=== PATIENT | female | born 1995 | race Hispanic/Latino ===

== ENCOUNTER 2017-05-08 11:28 | Emergency (ER) | payer MEDICAID ==
[~2017-05-08 11:28] MED LIST: PNV1TABL17 PO
[2017-05-08 11:48] LABS: APPEARANCE,URINE Cloudy (CLEAR); BILIRUBIN,URINE Negative (NEGATIVE); COLOR,URINE Dark Yellow (YELLOW); GLUCOSE, URINE (UA) Negative (NEGATIVE); KETONES,URINE Trace mg/dL (NEGATIVE); LEUKOCYTE ESTERASE ,URINE Trace (NEGATIVE); NITRATE,URINE Negative (NEGATIVE); OCCULT BLOOD,URINE Negative (NEGATIVE); PROTEIN,URINE Trace (NEGATIVE)
[2017-05-08 12:06] LABS: BACTERIA,URINE Moderate /HPF (None Seen); MUCUS,URINE Many LPF (None Seen); RBC,URINE 0-1 /HPF (0-1); SQUAMOUS EPITHELIAL CELL,UR Moderate /LPF (0-2)
[2017-05-08] MEDS ORDERED: LIDOCAINE HCL-MPF 1% 2ML VIAL ONE (12:12)
[2017-05-08] MEDS ORDERED: CEFTRIAXONE SODIUM 500 MG VIAL ONE (12:12)
[2017-05-08] MEDS ORDERED: AZITHROMYCIN 250 MG TABLET PO ONE (12:12)
== END 2017-05-08 12:47 | disposition home or self-care (01) ==
LOC: EDH 11:28
DX: N76.0 Acute vaginitis (principal); Z98.890 Other specified postprocedural states; Z72.0 Tobacco use
CPT/HCPCS: 81001; 87486; 87797; 96372; 99284; J0696; J3490

== ENCOUNTER 2018-04-21 19:59 | Emergency (ER) | payer MEDICAID ==
[2018-04-21] MEDS ORDERED: CLINDAMYCIN HCL 150 MG CAP ONE (20:25)
== END 2018-04-21 20:30 | disposition home or self-care (01) ==
LOC: EDH 19:59
DX: L03.113 Cellulitis of right upper limb (principal); Z90.49 Acquired absence of other specified parts of digestive tract; Z98.890 Other specified postprocedural states

== ENCOUNTER 2018-07-27 21:38 | Emergency (ER) | payer MEDICAID, OTHER ==
[2018-07-27 22:12] LABS: BASOPHILS % (AUTO) 0.5 % (0.0-5.0); EOSINOPHILS % (AUTO) 0.7 % (0.0-8.0); HEMATOCRIT 41.6 % (36-48); LYMPHOCYTES % (AUTO) 14.6 % (21.0-51.0); MEAN CORPUSCULAR HEMOGLOBIN 28.4 pg (27.0-33.0); MEAN CORPUSCULAR HGB CONC 33.5 g/dL (32.0-36.0); MEAN CORPUSCULAR VOLUME 84.9 fL (79-99); MONOCYTES % (AUTO) 9.6 % (3.0-13.0); NEUTROPHILS % (AUTO) 74.6 % (40.0-77.0); PLATELET COUNT (AUTO) 232 K/uL (130-400); RED CELL DISTRIBUTION WIDTH 14.7 % (11.0-15.5); WHITE BLOOD COUNT (AUTO) 14.6 K/uL (4.8-10.8)
[2018-07-27] MEDS ORDERED: ONDANSETRON HCL 4 MG/2 ML VIAL ONE (22:12)
[2018-07-27] MEDS ORDERED: SODIUM CHLORIDE 0.9% 1000ML 1,000 ML IV ONE (22:12)
[2018-07-27 22:28] LABS: INR 1.05 (0.85-1.15); PARTIAL THROMBOPLASTIN TIME 28.3 SEC (26.3-35.5)
[2018-07-27 22:32] LABS: CARBON DIOXIDE 27 mmol/L (21-32); CHLORIDE 102 mmol/L (101-111); CREATININE 0.8 mg/dL (0.5-1.5); GLOMERULAR FILTR. RATE CALC 93 mL/min (>60); GLUCOSE,RANDOM 101 mg/dL (70-105); POTASSIUM 3.9 mmol/L (3.5-5.1); SODIUM SERUM 139 mmol/L (136-145); UREA NITROGEN, BLOOD 14 mg/dL (7-18)
[2018-07-27 22:53] LABS: ALANINE AMINOTRANSFERASE 26 U/L (12-78); ALBUMIN 4.2 g/dL (3.5-5.0); ALCOHOL, BLOOD < 3 mg/dL (0-10); AMYLASE 54 U/L (25-115); ASPARTATE AMINOTRANSFERASE 17 U/L (10-37); BILIRUBIN,TOTAL 0.3 mg/dL (0.2-1.0); CREATINE KINASE, TOTAL 155 U/L (21-232); HCG,QUANTITATIVE 0 mIU/mL (0-5); LIPASE 69 U/L (114-286); TOTAL PROTEIN, SERUM 8.7 g/dL (6.0-8.3)
[2018-07-27 23:02] LABS: APPEARANCE,URINE Clear (CLEAR); BILIRUBIN,URINE Negative (NEGATIVE); COLOR,URINE Yellow (YELLOW); GLUCOSE, URINE (UA) Negative (NEGATIVE); KETONES,URINE Negative (NEGATIVE); LEUKOCYTE ESTERASE ,URINE Negative (NEGATIVE); NITRATE,URINE Negative (NEGATIVE); OCCULT BLOOD,URINE Negative (NEGATIVE); PROTEIN,URINE POS 1+ mg/dL (NEGATIVE)
[2018-07-27 23:03] LABS: HCG,QUAL RESULT NEGATIVE (NEGATIVE)
[2018-07-27 23:10] LABS: AMPHET/METH SCREEN,URINE POSITIVE (NEGATIVE); BARBITURATE SCREEN, URINE NEGATIVE (NEGATIVE); BENZODIAZEPINES SCREEN,URINE POSITIVE (NEGATIVE); CANNABINOID SCREEN,URINE NEGATIVE (NEGATIVE); COCAINE SCREEN,URINE POSITIVE (NEGATIVE); OPIATE SCREEN,URINE NEGATIVE (NEGATIVE); PHENCYCLIDINE SCREEN,URINE NEGATIVE (NEGATIVE)
[2018-07-27] MEDS ORDERED: PHENYTOIN SODIUM 50 MG/ML 2ML VIAL IV ONE (23:15)
[2018-07-27] MEDS ORDERED: SODIUM CHLORIDE 0.9% 100 ML IV ONE (23:20)
[2018-07-27] MEDS ORDERED: FOSPHENYTOIN SODIUM 100 MG/2 ML VIAL IV ONE (23:20)
== END 2018-07-28 01:32 ==
LOC: EDH 21:38
DX: S09.8XXA Other specified injuries of head, initial encounter (principal); G40.909 Epilepsy, unspecified, not intractable, without status epilepticus; F14.10 Cocaine abuse, uncomplicated; F15.10 Other stimulant abuse, uncomplicated; F13.10 Sedative, hypnotic or anxiolytic abuse, uncomplicated; Z90.49 Acquired absence of other specified parts of digestive tract; Z72.0 Tobacco use; W18.39XA Other fall on same level, initial encounter; Y93.89 Activity, other specified; Y92.89 Other specified places as the place of occurrence of the external cause; Y99.8 Other external cause status
CPT/HCPCS: 36415; 70450; 80053; 80177; 80305; 81003; 81025; 82150; 82550; 83690; 84484; 84702; 85025; 85610; 85730; 93005; 96374; 96375; 99285; G0480; J1165; J2405; J7030; Q2009

== ENCOUNTER 2018-07-31 11:16 | Emergency (ER) | payer OTHER ==
[2018-07-31 12:04] LABS: APPEARANCE,URINE Clear (CLEAR); BILIRUBIN,URINE Negative (NEGATIVE); COLOR,URINE Yellow (YELLOW); GLUCOSE, URINE (UA) Negative (NEGATIVE); KETONES,URINE Negative (NEGATIVE); LEUKOCYTE ESTERASE ,URINE Negative (NEGATIVE); NITRATE,URINE Negative (NEGATIVE); OCCULT BLOOD,URINE Negative (NEGATIVE); PROTEIN,URINE Negative (NEGATIVE)
[2018-07-31 12:08] LABS: HCG,QUAL RESULT NEGATIVE (NEGATIVE)
[2018-07-31 12:14] LABS: AMPHET/METH SCREEN,URINE POSITIVE (NEGATIVE); BARBITURATE SCREEN, URINE NEGATIVE (NEGATIVE); BENZODIAZEPINES SCREEN,URINE POSITIVE (NEGATIVE); CANNABINOID SCREEN,URINE NEGATIVE (NEGATIVE); COCAINE SCREEN,URINE POSITIVE (NEGATIVE); OPIATE SCREEN,URINE NEGATIVE (NEGATIVE); PHENCYCLIDINE SCREEN,URINE NEGATIVE (NEGATIVE)
== END 2018-07-31 12:32 | disposition home or self-care (01) ==
LOC: EDH 11:16
DX: B00.1 Herpesviral vesicular dermatitis (principal); Z90.49 Acquired absence of other specified parts of digestive tract
CPT/HCPCS: 80305; 81003; 81025

== ENCOUNTER 2018-08-02 20:08 | Emergency (ER) | payer OTHER ==
[2018-08-02] MEDS ORDERED: LEVETIRACETAM 500 MG TABLET PO ONE (20:44)
== END 2018-08-02 21:21 | disposition home or self-care (01) ==
LOC: EDH 20:08
DX: G40.909 Epilepsy, unspecified, not intractable, without status epilepticus (principal); Z90.49 Acquired absence of other specified parts of digestive tract; Z98.890 Other specified postprocedural states; Z72.0 Tobacco use

== ENCOUNTER 2018-08-09 23:59 | Emergency (ER) | payer OTHER ==
[2018-08-10] MEDS ORDERED: KETOROLAC TROMETHAMINE 30MG/ML ONE (00:36)
[2018-08-10] MEDS ORDERED: CLINDAMYCIN 300 MG/D5W 50 ML 50 ML IV ONE (00:36)
[2018-08-10] MEDS ORDERED: DiphenhydrAMINE HCL 50 MG/ML VIAL ONE (00:36)
[2018-08-10] MEDS ORDERED: LIDOCAINE HCL 2% VISCOUS 15 ML UDCUP ONE (00:37)
[2018-08-10] MEDS ORDERED: SODIUM CHLORIDE 0.9% 1000ML 1,000 ML IV ONE (00:37)
[2018-08-10] MEDS ORDERED: CLINDAMYCIN HCL 150 MG CAP ONE (01:28)
== END 2018-08-10 02:11 ==
LOC: EDH 23:59
DX: K02.9 Dental caries, unspecified (principal); Z90.49 Acquired absence of other specified parts of digestive tract; Z72.0 Tobacco use
CPT/HCPCS: 96374; 96375; 99284; J1200; J1885; J3490; J7030

== ENCOUNTER 2018-08-23 22:15 | Observation (INO) | payer OTHER ==
[~2018-08-23] VITALS: Ht 152.4 cm; Wt 61.8 kg
[2018-08-23 23:09] LABS: BASOPHILS % (AUTO) 0.6 % (0.0-5.0); EOSINOPHILS % (AUTO) 3.4 % (0.0-8.0); HEMATOCRIT 38.4 % (36-48); MEAN CORPUSCULAR HEMOGLOBIN 28.4 pg (27.0-33.0); MEAN CORPUSCULAR HGB CONC 32.6 g/dL (32.0-36.0); MEAN CORPUSCULAR VOLUME 87.1 fL (79-99); MONOCYTES % (AUTO) 11.2 % (3.0-13.0); NEUTROPHILS % (AUTO) 52.8 % (40.0-77.0); PLATELET COUNT (AUTO) 254 K/uL (130-400); RED BLOOD CELL COUNT(AUTO) 4.41 MIL/uL (4.00-5.50); RED CELL DISTRIBUTION WIDTH 16.1 % (11.0-15.5); WHITE BLOOD COUNT (AUTO) 10.2 K/uL (4.8-10.8)
[2018-08-23 23:13] LABS: CREATININE 0.6 mg/dL (0.5-1.5); POTASSIUM 4.8 mmol/L (3.5-5.1)
[2018-08-23] MEDS ORDERED: FOSPHENYTOIN SODIUM 500 MG/10ML VIAL IJ ONE (23:14)
[2018-08-23] MEDS ORDERED: SODIUM CHLORIDE 0.9% 500ML 500 ML IV ONE (23:15)
[2018-08-23 23:18] LABS: ALBUMIN 3.8 g/dL (3.5-5.0); BILIRUBIN,TOTAL 0.1 mg/dL (0.2-1.0); TOTAL PROTEIN, SERUM 7.6 g/dL (6.0-8.3)
[2018-08-23 23:35] LABS: APPEARANCE,URINE Clear (CLEAR); BILIRUBIN,URINE Negative (NEGATIVE); COLOR,URINE Yellow (YELLOW); GLUCOSE, URINE (UA) Negative (NEGATIVE); KETONES,URINE Negative (NEGATIVE); LEUKOCYTE ESTERASE ,URINE Small (NEGATIVE); NITRATE,URINE Negative (NEGATIVE); OCCULT BLOOD,URINE Negative (NEGATIVE); PROTEIN,URINE Negative (NEGATIVE); UROBILINOGEN,URINE 0.2 mg/dL (0.2-1.0)
[2018-08-23 23:39] LABS: HCG,QUAL RESULT NEGATIVE (NEGATIVE)
[2018-08-23 23:43] LABS: AMPHET/METH SCREEN,URINE NEGATIVE (NEGATIVE); BARBITURATE SCREEN, URINE NEGATIVE (NEGATIVE); BENZODIAZEPINES SCREEN,URINE NEGATIVE (NEGATIVE); CANNABINOID SCREEN,URINE NEGATIVE (NEGATIVE); COCAINE SCREEN,URINE NEGATIVE (NEGATIVE); OPIATE SCREEN,URINE NEGATIVE (NEGATIVE); PHENCYCLIDINE SCREEN,URINE NEGATIVE (NEGATIVE)
[2018-08-23 23:55] LABS: BACTERIA,URINE None Seen /HPF (None Seen); RBC,URINE None Seen /HPF (0-1); WBC,URINE 0-1 /HPF (0-1)
[2018-08-23 23:56] LABS: SQUAMOUS EPITHELIAL CELL,UR Many /HPF (0-2)
[2018-08-24] MEDS ORDERED: ACETAMINOPHEN EXTRA STRENGTH 500 MG TABLET ONE (03:24)
[2018-08-24 03:50] VITALS: BP 116/76
[2018-08-24] MEDS ORDERED: IBUP-2353 PO (04:04)
[2018-08-24] MEDS ORDERED: ESCI10TA54 PO (04:04)
[2018-08-24] MEDS ORDERED: LEVE500T19 PO (04:04)
[2018-08-24 07:30] VITALS: BP 107/69
[2018-08-24] MEDS ORDERED: IBUPROFEN 400 MG TABLET PO PRN (07:45)
[2018-08-24] MEDS: LEVETIRACETAM 250 MG TABLET PO SCH ×2 (08:50→22:52)
[2018-08-24 11:00] VITALS: BP 106/49
--- NOTE | 2018-08-24 11:02 | NUR ---
[facility] SW spoke to office at bedside. Pt will return to [facility] at discharge.
[2018-08-24 16:00] VITALS: BP 104/76
[2018-08-24] MEDS ORDERED: CITALOPRAM 20 MG TABLET PO SCH (17:00)
--- NOTE | 2018-08-24 17:36 | NUR ---
cm note met with patient and officer at bedside. per officer can call at time of dc for any needs nursing to speak to nurse Dario. [phone]. also can give rxs to officer at discharge, and the [facility] will make arrangements to have them picked up at [facility] in [place]. updated primary nurse on plan.
[2018-08-24 20:12] VITALS: BP 135/72
[2018-08-25 00:04] VITALS: BP 111/71
--- NOTE | 2018-08-25 00:45 | NUR ---
Re: c/o headache Pt c/o of headache, radiating to her back at this time claimed scale 8/10, pt noted calmly watching TV with the officer at the bedside, VS stable. Pt made aware she has Ibuprofen 400mg but refused stated she was given this meds earlier but it did not help at all. I made her aware I need to page Dr. Guzmán to ask other type of pain medication.
--- NOTE | 2018-08-25 01:10 | NUR ---
Re: Pain medication Dr. Guzmán page & called back updated with pt's c/o, provided with why pt is admitted since MD claimed he does not recall having this pt. I made him aware that probably this is a pt of Dr. Zacarias since [facility]. Order received & carried out.
[2018-08-25] MEDS ORDERED: ACETAMINOPHEN-CODEINE 300/30MG TAB ONE (01:15)
[2018-08-25] MEDS ORDERED: ACETAMINOPHEN-CODEINE 300/30MG TAB PO PRN (01:15)
--- NOTE | 2018-08-25 02:20 | NUR ---
Re: c/o abdominal discomfort, SOB Pt at this time c/o of sudden abdominal discomfort, claimed just like a gallbladder pain when stated "I don't have a gallbladder" claimed upper quadrant discomfort, not a pain. I explained since I just had given her the Tylenol with Codeine, I won't be able to give her anything at this time. Pt once again claimed it's not a pain I just don't know what it is. At this time I offered a warm compress. O2 sat 99%.
--- NOTE | 2018-08-25 02:40 | NUR ---
Re: C/O Chest Pain protection officer at the bedside came out & stated that the pt this time is complaining of chest pain with abdominal pain, crying & restless. [place] [address]; [place] 110, RR 21, O2 sat 97 room air. Pt cued to calm down, noted to start hyperventilating, explained what she is manifesting at this time won't help her discomfort, but insisted that I don't understand her, that she really is having a bad chest pain with pressure that radiated to her stomach. I then inform the pt I will proceed in doing 12 lead EKG to see if any issue in her rhythm, agreed. When all intervention was done, pt made aware everything was OK, pt continue to sob, claiming she does not understand why is this happening. Encourage pt to relax by watching some TV shows or try to sleep. Then this time stating that her bed might have some bugs as she start feeling itchy, again assurance given, all sheets change as pt stated she just took a shower earlier.
[2018-08-25 02:45] VITALS: BP 134/73
--- NOTE | 2018-08-25 03:10 | NUR ---
Re-assess Pt noted eating with some chips & laughing with the nursing home guard at the bedside, claimed she feels better now, again did know why she had the pain earlier. Encourage pt then to get some sleep at this time.
[2018-08-25 04:07] VITALS: BP 164/73
[2018-08-25 04:08] VITALS: BP 125/65
[2018-08-25 08:00] VITALS: BP 118/68
[2018-08-25] MEDS: LEVETIRACETAM 250 MG TABLET PO SCH (08:53)
--- NOTE | 2018-08-25 09:20 | NUR ---
Re: c/o of chest pain at 0245 Page & called back Dr. Guzmán updated of pt c/o chest pain around 0245, after given with Tylenol with Codeine, pt claimed head ache & back pain is gone but then at 0245 start c/o chest pain with abdominal pain, crying, start hyperventilating, inspite of assurance given everything VS, O2sat within normal, 12 lead EKG done & when made aware outcome NSR, after few minutes start to calm down. MD made aware airfield engineer officer had asked if he will be coming to see the pt today, stated will do.
[2018-08-25 11:49] VITALS: BP 100/60
--- NOTE | 2018-08-25 16:00 | NUR ---
PT D/C TO [facility] USING TEACH BACK TECHNIQUE RE; HOME MEDS, NEW MEDS, S/S TO WATCH FOR AND WHEN TO CALL MD OR 911. CALL 911 IF SEIZURES REOCCUR. MAKE SURE TO FOLLOW UP WITH YOUR PRIMARY DOCTOR IN 1 WEEK. MAKE SURE TO CONTINUE TAKING YOUR ANTISEIZURE MEDICATION IT WAS INCREASED IN STRENGTH TO PREVENT SEIZURES. MAKE SURE YOU START TAKING OMEPRAZOLE TO PREVENT UPSET STOMACH OR GASTRITIS FROM WORSENING. TAKE PILLS BEFORE MEALS. IV OUT INTACT NO BLEEDING, AAOX3, DENIES ANY DISTRESS AT THIS TIME. OFFICER AT BEDSIDE. REPORT GIVEN TO NURSE FROM [facility].
== END 2018-08-25 16:26 ==
LOC: EDH 22:15 → EEVIPCON 22:16 → EDHIP 22:16 → 3DH 08-24 02:54
PROVIDERS: ADMIT Internal Medicine; ATTEND Internal Medicine
DX: G40.909 Epilepsy, unspecified, not intractable, without status epilepticus (principal); G43.909 Migraine, unspecified, not intractable, without status migrainosus; K29.70 Gastritis, unspecified, without bleeding; F13.239 Sedative, hypnotic or anxiolytic dependence with withdrawal, unspecified; Z82.0 Family history of epilepsy and other diseases of the nervous system; Z79.899 Other long term (current) drug therapy
CPT/HCPCS: 36415; 70450; 71045; 80053; 80177; 80305; 81001; 81025; 82550; 85025; 93005; 99284; G0378 ×33; J7040; Q2009

== ENCOUNTER 2018-08-26 00:55 | Emergency (ER) | payer OTHER ==
[~2018-08-26 00:55] MED LIST changes: +ESCI10TA54 PO; +IBUP-2353 PO; -PNV1TABL17 PO
[2018-08-26 01:25] LABS: BASOPHILS % (AUTO) 0.5 % (0.0-5.0); EOSINOPHILS % (AUTO) 3.1 % (0.0-8.0); HEMATOCRIT 35.8 % (36-48); LYMPHOCYTES % (AUTO) 31.3 % (21.0-51.0); MEAN CORPUSCULAR HEMOGLOBIN 29.3 pg (27.0-33.0); MEAN CORPUSCULAR HGB CONC 33.8 g/dL (32.0-36.0); MEAN CORPUSCULAR VOLUME 86.8 fL (79-99); MONOCYTES % (AUTO) 9.5 % (3.0-13.0); NEUTROPHILS % (AUTO) 55.6 % (40.0-77.0); PLATELET COUNT (AUTO) 210 K/uL (130-400); RED BLOOD CELL COUNT(AUTO) 4.13 MIL/uL (4.00-5.50); RED CELL DISTRIBUTION WIDTH 15.6 % (11.0-15.5)
[2018-08-26 01:31] LABS: CREATININE 0.5 mg/dL (0.5-1.5); POTASSIUM 3.8 mmol/L (3.5-5.1)
[2018-08-26 02:33] LABS: BILIRUBIN,URINE Negative (NEGATIVE); COLOR,URINE Yellow (YELLOW); GLUCOSE, URINE (UA) Negative (NEGATIVE); KETONES,URINE Negative (NEGATIVE); LEUKOCYTE ESTERASE ,URINE Negative (NEGATIVE); NITRATE,URINE Negative (NEGATIVE); OCCULT BLOOD,URINE Negative (NEGATIVE); PROTEIN,URINE Negative (NEGATIVE); UROBILINOGEN,URINE 0.2 mg/dL (0.2-1.0)
[2018-08-26 02:35] LABS: HCG,QUAL RESULT NEGATIVE (NEGATIVE)
[2018-08-26 02:36] LABS: APPEARANCE,URINE CLEAR (CLEAR)
[2018-08-26 02:47] LABS: AMPHET/METH SCREEN,URINE NEGATIVE (NEGATIVE); BARBITURATE SCREEN, URINE NEGATIVE (NEGATIVE); BENZODIAZEPINES SCREEN,URINE NEGATIVE (NEGATIVE); CANNABINOID SCREEN,URINE NEGATIVE (NEGATIVE); COCAINE SCREEN,URINE NEGATIVE (NEGATIVE); OPIATE SCREEN,URINE POSITIVE (NEGATIVE); PHENCYCLIDINE SCREEN,URINE NEGATIVE (NEGATIVE)
== END 2018-08-26 03:43 ==
LOC: EDH 00:55
DX: G40.909 Epilepsy, unspecified, not intractable, without status epilepticus (principal); Z79.899 Other long term (current) drug therapy; Z87.891 Personal history of nicotine dependence
CPT/HCPCS: 36415; 80048; 80305; 81003; 81025; 85025

== ENCOUNTER 2018-08-31 00:17 | Emergency (ER) | payer OTHER ==
[2018-08-31 01:29] LABS: HCG,QUAL RESULT NEGATIVE (NEGATIVE)
[2018-08-31 01:30] LABS: BASOPHILS % (AUTO) 2.5 % (0.0-5.0); EOSINOPHILS % (AUTO) 3.6 % (0.0-8.0); HEMATOCRIT 37.6 % (36-48); LYMPHOCYTES % (AUTO) 30.9 % (21.0-51.0); MEAN CORPUSCULAR HEMOGLOBIN 28.7 pg (27.0-33.0); MEAN CORPUSCULAR HGB CONC 32.9 g/dL (32.0-36.0); MEAN CORPUSCULAR VOLUME 87.2 fL (79-99); MONOCYTES % (AUTO) 8.4 % (3.0-13.0); NEUTROPHILS % (AUTO) 54.6 % (40.0-77.0); PLATELET COUNT (AUTO) 252 K/uL (130-400); RED BLOOD CELL COUNT(AUTO) 4.31 MIL/uL (4.00-5.50); RED CELL DISTRIBUTION WIDTH 15.9 % (11.0-15.5); WHITE BLOOD COUNT (AUTO) 9.3 K/uL (4.8-10.8)
[2018-08-31 01:35] LABS: AMPHET/METH SCREEN,URINE NEGATIVE (NEGATIVE); BARBITURATE SCREEN, URINE NEGATIVE (NEGATIVE); BENZODIAZEPINES SCREEN,URINE NEGATIVE (NEGATIVE); CANNABINOID SCREEN,URINE NEGATIVE (NEGATIVE); COCAINE SCREEN,URINE NEGATIVE (NEGATIVE); OPIATE SCREEN,URINE NEGATIVE (NEGATIVE); PHENCYCLIDINE SCREEN,URINE NEGATIVE (NEGATIVE)
[2018-08-31] MEDS ORDERED: FOSPHENYTOIN SODIUM 500 MG/10ML VIAL IJ ONE (01:44)
[2018-08-31] MEDS ORDERED: SODIUM CHLORIDE 0.9% 1000ML 1,000 ML IV ONE (01:46)
[2018-08-31] MEDS ORDERED: SODIUM CHLORIDE 0.9% 100 ML IV ONE (01:47)
[2018-08-31 02:02] LABS: CARBON DIOXIDE 28 mmol/L (21-32); CHLORIDE 104 mmol/L (101-111); CREATININE 0.6 mg/dL (0.5-1.5); GLOMERULAR FILTR. RATE CALC 129 mL/min (>60); GLUCOSE,RANDOM 114 mg/dL (70-105); POTASSIUM 4.3 mmol/L (3.5-5.1); SODIUM SERUM 138 mmol/L (136-145); UREA NITROGEN, BLOOD 21 mg/dL (7-18)
[2018-08-31 02:08] LABS: ALANINE AMINOTRANSFERASE 107 U/L (12-78); ALBUMIN 3.7 g/dL (3.5-5.0); ASPARTATE AMINOTRANSFERASE 27 U/L (10-37); TOTAL PROTEIN, SERUM 7.7 g/dL (6.0-8.3)
[2018-08-31 02:15] LABS: BILIRUBIN,TOTAL < 0.1 mg/dL (0.2-1.0)
== END 2018-08-31 03:47 | disposition home or self-care (01) ==
LOC: EDH 00:17
DX: R56.9 Unspecified convulsions (principal); R42 Dizziness and giddiness; R51 Headache; Z90.49 Acquired absence of other specified parts of digestive tract; Z98.890 Other specified postprocedural states
CPT/HCPCS: 36415; 80053; 80305; 81025; 85025; 93005; 96361; 96365; 99285; J7030; Q2009

== ENCOUNTER 2018-09-09 23:32 | Emergency (ER) | payer OTHER ==
[2018-09-10 00:19] LABS: BASOPHILS % (AUTO) 1.2 % (0.0-5.0); EOSINOPHILS % (AUTO) 1.9 % (0.0-8.0); HEMATOCRIT 29.5 % (36-48); LYMPHOCYTES % (AUTO) 39.3 % (21.0-51.0); MEAN CORPUSCULAR HEMOGLOBIN 28.8 pg (27.0-33.0); MEAN CORPUSCULAR VOLUME 87.3 fL (79-99); MONOCYTES % (AUTO) 9.7 % (3.0-13.0); NEUTROPHILS % (AUTO) 47.9 % (40.0-77.0); PLATELET COUNT (AUTO) 199 K/uL (130-400); RED BLOOD CELL COUNT(AUTO) 3.37 MIL/uL (4.00-5.50); RED CELL DISTRIBUTION WIDTH 15.9 % (11.0-15.5); WHITE BLOOD COUNT (AUTO) 6.3 K/uL (4.8-10.8)
[2018-09-10 00:21] LABS: APPEARANCE,URINE Clear (CLEAR); BILIRUBIN,URINE Negative (NEGATIVE); COLOR,URINE Yellow (YELLOW); GLUCOSE, URINE (UA) Negative (NEGATIVE); KETONES,URINE Negative (NEGATIVE); LEUKOCYTE ESTERASE ,URINE Negative (NEGATIVE); NITRATE,URINE Negative (NEGATIVE); OCCULT BLOOD,URINE Negative (NEGATIVE); PH,URINE 6.5 (5.0-8.0); PROTEIN,URINE Negative (NEGATIVE); UROBILINOGEN,URINE 0.2 mg/dL (0.2-1.0)
[2018-09-10 00:30] LABS: CARBON DIOXIDE 28 mmol/L (21-32); CHLORIDE 105 mmol/L (101-111); CREATININE 0.5 mg/dL (0.5-1.5); GLOMERULAR FILTR. RATE CALC 160 mL/min (>60); GLUCOSE,RANDOM 86 mg/dL (70-105); POTASSIUM 3.8 mmol/L (3.5-5.1); SODIUM SERUM 139 mmol/L (136-145); UREA NITROGEN, BLOOD 13 mg/dL (7-18)
[2018-09-10 00:32] LABS: HCG,QUAL RESULT NEGATIVE (NEGATIVE)
[2018-09-10 00:35] LABS: ALANINE AMINOTRANSFERASE 37 U/L (12-78); ALBUMIN 3.4 g/dL (3.5-5.0); ASPARTATE AMINOTRANSFERASE 20 U/L (10-37); TOTAL PROTEIN, SERUM 6.8 g/dL (6.0-8.3)
[2018-09-10 00:39] LABS: BILIRUBIN,TOTAL < 0.1 mg/dL (0.2-1.0)
[2018-09-10 00:45] LABS: AMPHET/METH SCREEN,URINE NEGATIVE (NEGATIVE); BARBITURATE SCREEN, URINE NEGATIVE (NEGATIVE); BENZODIAZEPINES SCREEN,URINE NEGATIVE (NEGATIVE); CANNABINOID SCREEN,URINE NEGATIVE (NEGATIVE); COCAINE SCREEN,URINE NEGATIVE (NEGATIVE); OPIATE SCREEN,URINE NEGATIVE (NEGATIVE); PHENCYCLIDINE SCREEN,URINE NEGATIVE (NEGATIVE)
[2018-09-10] MEDS ORDERED: ONDANSETRON ODT 4 MG TAB ONE (00:48)
[2018-09-10] MEDS ORDERED: ACETAMINOPHEN EXTRA STRENGTH 500 MG TABLET ONE (00:48)
== END 2018-09-10 02:51 | disposition home or self-care (01) ==
LOC: EDH 23:32
DX: S00.03XA Contusion of scalp, initial encounter (principal); G40.909 Epilepsy, unspecified, not intractable, without status epilepticus; Z90.49 Acquired absence of other specified parts of digestive tract; Z98.890 Other specified postprocedural states; Z79.899 Other long term (current) drug therapy; W18.39XA Other fall on same level, initial encounter; Y93.89 Activity, other specified; Y92.89 Other specified places as the place of occurrence of the external cause; Y99.8 Other external cause status
CPT/HCPCS: 36415; 70450; 80053; 80305; 81003; 81025; 85025

== ENCOUNTER 2018-10-08 21:09 | Emergency (ER) | payer OTHER ==
[2018-10-08 22:15] LABS: APPEARANCE,URINE Clear (CLEAR); BILIRUBIN,URINE Negative (NEGATIVE); COLOR,URINE Yellow (YELLOW); GLUCOSE, URINE (UA) Negative (NEGATIVE); KETONES,URINE Negative (NEGATIVE); LEUKOCYTE ESTERASE ,URINE Negative (NEGATIVE); NITRATE,URINE Negative (NEGATIVE); OCCULT BLOOD,URINE Negative (NEGATIVE); PROTEIN,URINE Negative (NEGATIVE); UROBILINOGEN,URINE 0.2 mg/dL (0.2-1.0)
[2018-10-08 22:26] LABS: HCG,QUAL RESULT NEGATIVE (NEGATIVE)
[2018-10-08] MEDS ORDERED: LEVETIRACETAM 500 MG/5 ML SD VIAL IV ONE (22:42)
[2018-10-08] MEDS ORDERED: DiphenhydrAMINE HCL 50 MG/ML VIAL ONE (22:42)
[2018-10-08] MEDS ORDERED: SODIUM CHLORIDE 0.9% 1000ML 1,000 ML IV ONE (22:43)
[2018-10-08] MEDS ORDERED: SODIUM CHLORIDE 0.9% 100 ML IV ONE (22:43)
[2018-10-08 22:45] LABS: BASOPHILS % (AUTO) 0.8 % (0.0-5.0); EOSINOPHILS % (AUTO) 2.4 % (0.0-8.0); HEMATOCRIT 35.8 % (36-48); LYMPHOCYTES % (AUTO) 40.1 % (21.0-51.0); MEAN CORPUSCULAR HEMOGLOBIN 29.4 pg (27.0-33.0); MEAN CORPUSCULAR HGB CONC 33.3 g/dL (32.0-36.0); MEAN CORPUSCULAR VOLUME 88.2 fL (79-99); MONOCYTES % (AUTO) 12.1 % (3.0-13.0); NEUTROPHILS % (AUTO) 44.6 % (40.0-77.0); PLATELET COUNT (AUTO) 245 K/uL (130-400); RED BLOOD CELL COUNT(AUTO) 4.06 MIL/uL (4.00-5.50); WHITE BLOOD COUNT (AUTO) 7.9 K/uL (4.8-10.8)
[2018-10-08 22:56] LABS: CREATININE 0.7 mg/dL (0.5-1.5); POTASSIUM 4.2 mmol/L (3.5-5.1)
[2018-10-08 23:00] LABS: ALBUMIN 4.1 g/dL (3.5-5.0); BILIRUBIN,TOTAL 0.1 mg/dL (0.2-1.0); TOTAL PROTEIN, SERUM 8.7 g/dL (6.0-8.3)
== END 2018-10-08 23:54 ==
LOC: EDH 21:09
DX: R56.9 Unspecified convulsions (principal); R51 Headache; I10 Essential (primary) hypertension; F41.9 Anxiety disorder, unspecified; Z79.899 Other long term (current) drug therapy
CPT/HCPCS: 36415; 80053; 81003; 81025; 85025; 96374; 99284; J1200; J1953; J7030

== ENCOUNTER 2018-11-17 23:06 | Emergency (ER) | payer OTHER ==
[~2018-11-17 23:06] MED LIST changes: -IBUP-2353 PO; +IBUP-2784 PO
[2018-11-17 23:34] LABS: CREATININE 0.8 mg/dL (0.5-1.5); POTASSIUM 4.8 mmol/L (3.5-5.1)
[2018-11-17 23:35] LABS: BASOPHILS % (AUTO) 0.6 % (0.0-5.0); EOSINOPHILS % (AUTO) 3.4 % (0.0-8.0); HEMATOCRIT 33.4 % (36-48); LYMPHOCYTES % (AUTO) 41.1 % (21.0-51.0); MEAN CORPUSCULAR HEMOGLOBIN 29.9 pg (27.0-33.0); MEAN CORPUSCULAR HGB CONC 33.3 g/dL (32.0-36.0); MEAN CORPUSCULAR VOLUME 89.9 fL (79-99); MONOCYTES % (AUTO) 10.2 % (3.0-13.0); NEUTROPHILS % (AUTO) 44.7 % (40.0-77.0); PLATELET COUNT (AUTO) 247 K/uL (130-400); RED BLOOD CELL COUNT(AUTO) 3.71 MIL/uL (4.00-5.50); RED CELL DISTRIBUTION WIDTH 14.5 % (11.0-15.5); WHITE BLOOD COUNT (AUTO) 7.9 K/uL (4.8-10.8)
[2018-11-17 23:37] LABS: INR 0.97 (0.85-1.15); PARTIAL THROMBOPLASTIN TIME 24.7 SEC (26.3-35.5); PROTHROMBIN TIME 10.2 SEC (9.6-11.6)
[2018-11-17 23:39] LABS: ALBUMIN 3.8 g/dL (3.5-5.0); BILIRUBIN,TOTAL 0.1 mg/dL (0.2-1.0); TOTAL PROTEIN, SERUM 7.7 g/dL (6.0-8.3)
[2018-11-17] MEDS ORDERED: ACETAMINOPHEN 325 MG TAB ONE (23:43)
[2018-11-17 23:50] LABS: APPEARANCE,URINE Clear (CLEAR); BILIRUBIN,URINE Negative (NEGATIVE); COLOR,URINE Yellow (YELLOW); GLUCOSE, URINE (UA) Negative (NEGATIVE); KETONES,URINE Negative (NEGATIVE); LEUKOCYTE ESTERASE ,URINE Trace (NEGATIVE); NITRATE,URINE Negative (NEGATIVE); OCCULT BLOOD,URINE Large (NEGATIVE); PROTEIN,URINE Negative (NEGATIVE); UROBILINOGEN,URINE 0.2 mg/dL (0.2-1.0)
[2018-11-17 23:59] LABS: AMPHET/METH SCREEN,URINE NEGATIVE (NEGATIVE); BARBITURATE SCREEN, URINE NEGATIVE (NEGATIVE); BENZODIAZEPINES SCREEN,URINE NEGATIVE (NEGATIVE); CANNABINOID SCREEN,URINE NEGATIVE (NEGATIVE); COCAINE SCREEN,URINE NEGATIVE (NEGATIVE); OPIATE SCREEN,URINE NEGATIVE (NEGATIVE); PHENCYCLIDINE SCREEN,URINE NEGATIVE (NEGATIVE)
[2018-11-18] MEDS ORDERED: SODIUM CHLORIDE 0.9% 1000ML 1,000 ML IV ONE
[2018-11-18] MEDS ORDERED: LORAZEPAM 2 MG/ML 1 ML VIAL ONE ×2 (00:03→00:20)
[2018-11-18] MEDS ORDERED: PHENYTOIN SODIUM 50 MG/ML 2ML VIAL IV ONE (00:08)
[2018-11-18] MEDS ORDERED: PHENYTOIN SODIUM 50 MG/ML 5ML VIAL ONE (00:09)
[2018-11-18 00:10] LABS: BACTERIA,URINE None Seen /HPF (None Seen); RBC,URINE 0-1 /HPF (0-1); WBC,URINE 0-1 /HPF (0-1)
[2018-11-18] MEDS ORDERED: SODIUM CHLORIDE 0.9% 100 ML IV ONE ×2 (00:10→00:14)
[2018-11-18] MEDS ORDERED: FOSPHENYTOIN SODIUM 500 MG/10ML VIAL IJ ONE (00:14)
[2018-11-18] MEDS ORDERED: LEVETIRACETAM 500 MG TABLET PO ONE (00:21)
== END 2018-11-18 04:27 | disposition left against medical advice (07) ==
LOC: EDH 23:06
DX: G40.909 Epilepsy, unspecified, not intractable, without status epilepticus (principal); F41.9 Anxiety disorder, unspecified; Z90.49 Acquired absence of other specified parts of digestive tract; Z98.890 Other specified postprocedural states; Z79.899 Other long term (current) drug therapy; Z72.0 Tobacco use
CPT/HCPCS: 36415; 80053; 80177; 80305; 81001; 81025; 82550; 84484; 84702; 85025; 85610; 85730; 93005; 96365; 96375; 99291; J1165 ×2; J2060 ×2; J7030; Q2009